=== PATIENT | female | born 1955 | race Caucasian/White ===

== ENCOUNTER 2022-09-20 11:03 | Emergency (ER) | payer MEDICARE ==
[2022-09-20 12:00] LABS: CHLORIDE,CL 99 mmol/L (98-107); SODIUM,NA 134 mmol/L (136-145)
[2022-09-20 12:03] LABS: ESTIMATED GFR 62 mL/min (>=60)
[2022-09-20] MEDS: Sodium Chloride 0.9% 1,000 ML IV ONE (12:12)
[2022-09-20 12:17] LABS: CORONAVIRUS COVID-19 NAA POSITIVE (NEGATIVE); RESPIRATORY SYNCYTIAL VIR NAA NEGATIVE (NEGATIVE)
[2022-09-20] MEDS: cefTRIAXone 2 GM Vial IVPUSH ONE (12:47)
[2022-09-20] MEDS: Iopamidol 755 Mg/ML 100 ML Bottle IVPUSH ONE (13:30)
[2022-09-20] MEDS: Furosemide 40 MG/4 ML VIAL IV ONE (13:44)
[2022-09-20] MEDS: Heparin Sodium 5,000 Units/ML Vial IVPUSH ONE (14:58)
[2022-09-20] MEDS: Heparin Sodium/0.45% NaCl 25,000 UNITS/500 ML BAG IV SCH (15:00)
== END 2022-09-20 15:45 | disposition short-term general hospital (02) ==
LOC: VM.ED 11:03
DX: U07.1 COVID-19 (principal); J90 Pleural effusion, not elsewhere classified; I50.9 Heart failure, unspecified; N83.8 Other noninflammatory disorders of ovary, fallopian tube and broad ligament; R77.8 Other specified abnormalities of plasma proteins; Z87.891 Personal history of nicotine dependence
CPT/HCPCS: 0241U; 36415; 71045; 71275; 80053; 81001; 83605; 83880; 84145; 84484; 85025; 85379; 85730; 86140; 87040; 93005; 93010; 96361; 96374; 96375; 96376; 99285; 99285-25; J0696; J1644; J1940; J7030; Q9967

== ENCOUNTER 2022-09-29 12:42 | Inpatient (IN) | payer MEDICARE ==
[2022-09-29] MEDS ORDERED: Acetaminophen 325 MG Tab PO PRN ×2 (16:05→16:09)
[2022-09-29] MEDS ORDERED: Famotidine 20 MG Tab PO PRN (16:12)
[2022-09-29] MEDS: Apixaban 2.5 MG Tab PO SCH ×2 (21:03→21:06)
[2022-09-29] MEDS: Benzonatate 100 MG Cap PO SCH (21:04)
[2022-09-30] MEDS: Lidocaine 4% 1 each Patch TOP PRN (03:27)
[2022-09-30] MEDS: Apixaban 2.5 MG Tab PO SCH ×2 (11:27→20:43)
[2022-09-30] MEDS: Benzonatate 100 MG Cap PO SCH ×3 (11:27→20:42)
[2022-09-30] MEDS: Acetaminophen/HYDROcodone 325-5 MG Tab PO PRN (12:10)
[2022-09-30] MEDS: Furosemide 20 MG Tab PO SCH (12:11)
[2022-09-30] MEDS: Zinc Sulfate 220 MG Cap PO SCH (12:12)
[2022-10-01] MEDS: Acetaminophen/HYDROcodone 325-5 MG Tab PO PRN (09:31)
[2022-10-01] MEDS: oxyCODONE 5 MG Tab PO PRN ×2 (11:56→18:41)
[2022-10-01] MEDS: Apixaban 2.5 MG Tab PO SCH ×2 (11:56→20:27)
[2022-10-01] MEDS: Benzonatate 100 MG Cap PO SCH ×3 (11:56→20:27)
[2022-10-01] MEDS: Furosemide 20 MG Tab PO SCH (11:56)
[2022-10-01] MEDS: Zinc Sulfate 220 MG Cap PO SCH (12:00)
[2022-10-02] MEDS: oxyCODONE 5 MG Tab PO PRN ×4 (00:17→20:20)
[2022-10-02 06:57] LABS: BASOPHILS PERCENT AUTO 0.3 % (0.2-1.2); EOSINOPHILS PERCENT AUTO 0.3 % (0.0-4.0); HEMATOCRIT 32.5 % (33.0-47.0); HEMOGLOBIN 10.7 g/dL (12.0-16.0); LYMPHOCYTES ABSOLUTE AUTO 0.3 x10^3/uL (1.0-4.8); LYMPHOCYTES PERCENT AUTO 3.1 % (25.0-50.0); MEAN CORPUSCULAR HEMOGLOBIN 26.5 pg (26.0-32.0); MEAN CORPUSCULAR HGB CONC 32.9 g/dL (32.0-36.0); MEAN CORPUSCULAR VOLUME 80.4 fL (78.0-93.0); MONOCYTES ABSOLUTE AUTO 0.7 x10^3/uL (0.0-0.8); MONOCYTES PERCENT AUTO 6.4 % (2.0-11.0); NEUTROPHILS ABSOLUTE AUTO 9.5 x10^3/uL (1.8-7.7); PLATELET COUNT,PLT 460 x10^3/uL (130-400); RED BLOOD CELL COUNT 4.04 x10^6/uL (4.00-5.50); WHITE BLOOD CELL COUNT,WBC 10.7 x10^3/uL (4.0-10.0)
[2022-10-02 07:08] LABS: A/G RATIO 0.39; ALBUMIN 1.6 g/dL (3.4-5.0); ANION GAP 14.7 mmol/L (5-15); BILIRUBIN TOTAL 0.4 mg/dL (0.2-1.0); CALCIUM 8.7 mg/dL (8.5-10.1); CREATININE 1.3 mg/dL (0.55-1.02); EST CRCL DRUG DOSING (CG) 35.21 mL/min; POTASSIUM,K 4.7 mmol/L (3.5-5.1); PROTEIN TOTAL,TP 5.7 g/dL (6.4-8.2)
[2022-10-02] MEDS: Apixaban 2.5 MG Tab PO SCH ×2 (10:37→20:20)
[2022-10-02] MEDS: Benzonatate 100 MG Cap PO SCH ×3 (10:37→20:20)
[2022-10-02] MEDS: Furosemide 20 MG Tab PO SCH (10:38)
[2022-10-02] MEDS: Zinc Sulfate 220 MG Cap PO SCH (12:46)
[2022-10-02] MEDS: Lidocaine 4% 1 each Patch TOP PRN (22:14)
[2022-10-03] MEDS: Acetaminophen/HYDROcodone 325-5 MG Tab PO PRN (04:57)
[2022-10-03] MEDS: Benzonatate 100 MG Cap PO SCH ×3 (09:18→20:26)
[2022-10-03] MEDS: Furosemide 20 MG Tab PO SCH (09:18)
[2022-10-03] MEDS: Apixaban 2.5 MG Tab PO SCH ×2 (09:18→20:26)
[2022-10-03] MEDS: Zinc Sulfate 220 MG Cap PO SCH (12:57)
[2022-10-03] MEDS: Ondansetron 4 MG Tab.DIS PO PRN (13:25)
[2022-10-03] MEDS: oxyCODONE 5 MG Tab PO PRN (20:26)
[2022-10-04] MEDS: Benzonatate 100 MG Cap PO SCH ×3 (08:58→20:17)
[2022-10-04] MEDS: Furosemide 20 MG Tab PO SCH (08:58)
[2022-10-04] MEDS: Apixaban 2.5 MG Tab PO SCH ×2 (08:58→20:17)
[2022-10-04] MEDS: oxyCODONE 5 MG Tab PO PRN ×2 (09:00→20:17)
[2022-10-04] MEDS: Zinc Sulfate 220 MG Cap PO SCH (13:39)
[2022-10-05] MEDS: oxyCODONE 5 MG Tab PO PRN ×3 (06:13→20:04)
[2022-10-05] MEDS: Benzonatate 100 MG Cap PO SCH ×3 (09:30→20:08)
[2022-10-05] MEDS: Apixaban 2.5 MG Tab PO SCH ×2 (09:30→20:08)
[2022-10-05] MEDS: Furosemide 20 MG Tab PO SCH ×2 (09:30→14:05)
[2022-10-05] MEDS: Zinc Sulfate 220 MG Cap PO SCH (14:05)
[2022-10-06] MEDS: oxyCODONE 5 MG Tab PO PRN ×3 (05:03→18:40)
[2022-10-06] MEDS: Furosemide 20 MG Tab PO SCH (08:53)
[2022-10-06] MEDS: Apixaban 2.5 MG Tab PO SCH ×2 (08:53→20:01)
[2022-10-06] MEDS: Benzonatate 100 MG Cap PO SCH ×3 (08:53→20:01)
[2022-10-06] MEDS: Zinc Sulfate 220 MG Cap PO SCH (12:45)
[2022-10-07] MEDS: oxyCODONE 5 MG Tab PO PRN ×4 (00:26→18:09)
[2022-10-07] MEDS: Apixaban 2.5 MG Tab PO SCH ×2 (09:14→20:45)
[2022-10-07] MEDS: Benzonatate 100 MG Cap PO SCH ×3 (09:14→20:45)
[2022-10-07] MEDS: Furosemide 20 MG Tab PO SCH (09:15)
[2022-10-07] MEDS: Zinc Sulfate 220 MG Cap PO SCH (11:57)
[2022-10-08] MEDS: oxyCODONE 5 MG Tab PO PRN ×4 (05:46→19:46)
[2022-10-08] MEDS: Benzonatate 100 MG Cap PO SCH ×3 (08:48→20:09)
[2022-10-08] MEDS: Apixaban 2.5 MG Tab PO SCH ×2 (08:48→20:09)
[2022-10-08] MEDS: Furosemide 20 MG Tab PO SCH (08:49)
[2022-10-08] MEDS: Zinc Sulfate 220 MG Cap PO SCH (12:34)
[2022-10-09] MEDS: oxyCODONE 5 MG Tab PO PRN ×3 (05:20→19:36)
[2022-10-09] MEDS: Apixaban 2.5 MG Tab PO SCH ×2 (10:38→20:27)
[2022-10-09] MEDS: Furosemide 20 MG Tab PO SCH (10:38)
[2022-10-09] MEDS: Benzonatate 100 MG Cap PO SCH ×3 (10:38→20:27)
[2022-10-09] MEDS: Zinc Sulfate 220 MG Cap PO SCH (12:15)
[2022-10-10] MEDS: oxyCODONE 5 MG Tab PO PRN ×4 (00:42→21:11)
[2022-10-10] MEDS: Apixaban 2.5 MG Tab PO SCH ×2 (10:21→21:10)
[2022-10-10] MEDS: Benzonatate 100 MG Cap PO SCH ×3 (10:22→21:11)
[2022-10-10] MEDS: Furosemide 20 MG Tab PO SCH (10:22)
[2022-10-10] MEDS: Zinc Sulfate 220 MG Cap PO SCH (14:10)
[2022-10-10] MEDS: Ondansetron 4 MG Tab.DIS PO PRN (15:55)
[2022-10-10] MEDS: LORazepam 0.5 MG Tab PO PRN (17:37)
[2022-10-11] MEDS: LORazepam 0.5 MG Tab PO PRN (01:52)
[2022-10-11] MEDS: Benzonatate 100 MG Cap PO SCH ×3 (09:22→20:42)
[2022-10-11] MEDS: Furosemide 20 MG Tab PO SCH ×2 (09:22→09:23)
[2022-10-11] MEDS: Apixaban 2.5 MG Tab PO SCH ×2 (09:22→20:42)
[2022-10-11] MEDS: Zinc Sulfate 220 MG Cap PO SCH (13:47)
[2022-10-11] MEDS: oxyCODONE 5 MG Tab PO PRN ×2 (14:29→20:49)
[2022-10-12] MEDS: oxyCODONE 5 MG Tab PO PRN ×4 (01:55→20:18)
[2022-10-12] MEDS: LORazepam 0.5 MG Tab PO PRN ×2 (02:54→11:07)
[2022-10-12] MEDS: Benzonatate 100 MG Cap PO SCH ×3 (09:38→20:20)
[2022-10-12] MEDS: Apixaban 2.5 MG Tab PO SCH ×2 (09:38→20:20)
[2022-10-12] MEDS: Furosemide 20 MG Tab PO SCH (10:04)
[2022-10-12] MEDS: Ondansetron 4 MG Tab.DIS PO PRN (14:46)
[2022-10-12] MEDS: Zinc Sulfate 220 MG Cap PO SCH (17:22)
[2022-10-13] MEDS: oxyCODONE 5 MG Tab PO PRN ×4 (00:30→15:07)
[2022-10-13] MEDS: Lidocaine 4% 1 each Patch TOP PRN (09:36)
[2022-10-13] MEDS ORDERED: HYDROmorphone 1 MG/ML Syringe SUBCUT PRN (09:37)
[2022-10-13] MEDS: Apixaban 2.5 MG Tab PO SCH ×2 (09:39→20:00)
[2022-10-13] MEDS: Furosemide 20 MG Tab PO SCH (09:39)
[2022-10-13] MEDS: Benzonatate 100 MG Cap PO SCH ×3 (09:39→20:00)
[2022-10-13] MEDS: HYDROmorphone 0.5 MG/0.5 ML Syringe IVPUSH PRN ×2 (12:47→16:27)
[2022-10-13] MEDS: Zinc Sulfate 220 MG Cap PO SCH (13:03)
[2022-10-13] MEDS: Ondansetron 4 MG/2 ML SDV IVPUSH SCH (19:18)
[2022-10-13] MEDS: HYDROmorphone 0.5 MG/0.5 ML Syringe IVPUSH SCH (20:01)
[2022-10-14] MEDS: HYDROmorphone 0.5 MG/0.5 ML Syringe IVPUSH PRN ×6 (00:01→17:31)
[2022-10-14] MEDS: oxyCODONE 5 MG Tab PO PRN ×3 (01:19→13:40)
[2022-10-14] MEDS: Ondansetron 4 MG/2 ML SDV IVPUSH SCH ×3 (08:29→17:32)
[2022-10-14] MEDS: HYDROmorphone 0.5 MG/0.5 ML Syringe IVPUSH SCH (08:39)
[2022-10-14] MEDS: Apixaban 2.5 MG Tab PO SCH ×2 (10:06→20:23)
[2022-10-14] MEDS: Benzonatate 100 MG Cap PO SCH ×3 (10:06→20:24)
[2022-10-14] MEDS: Furosemide 20 MG Tab PO SCH (10:06)
[2022-10-14] MEDS: Morphine Oral Concentrate 20 MG/ML 30 ML Bottle PO PRN ×4 (11:26→21:56)
[2022-10-14] MEDS: Zinc Sulfate 220 MG Cap PO SCH (13:25)
[2022-10-14] MEDS ORDERED: HYDROmorphone 1 MG/ML Syringe IVPUSH SCH (21:00)
== END 2022-10-14 22:37 | disposition expired | DRG 948 ==
LOC: VM.MS 15:24
PROVIDERS: ADMIT Family Medicine; ATTEND Family Medicine
DX: R53.81 Other malaise (principal); C56.9 Malignant neoplasm of unspecified ovary; R18.8 Other ascites; Z66 Do not resuscitate; Z88.5 Allergy status to narcotic agent; F32.A Depression, unspecified; Z88.8 Allergy status to other drugs, medicaments and biological substances; Z88.1 Allergy status to other antibiotic agents; Z86.711 Personal history of pulmonary embolism; Z87.891 Personal history of nicotine dependence; Z86.16 Personal history of COVID-19; Z79.01 Long term (current) use of anticoagulants; Z79.899 Other long term (current) drug therapy; Z51.5 Encounter for palliative care
CPT/HCPCS: 36415; 80053; 85025; 94760; 97110-GO; 97110-GP; 97116-GP; 97161-GP; 97165-GO; 97168-GO; 97535-GO; 99366-GO; A9270-GY; J1170; J2405